=== PATIENT | female | born 1940 | race Caucasian/White ===

== ENCOUNTER 2017-03-26 04:41 | Emergency (ER) | payer OTHER ==
[~2017-03-26] VITALS: Ht 157.5 cm; Wt 67.9 kg
[~2017-03-26 04:41] MED LIST: ASPIRIN E.C.81 M1 PO; CALTRATE 6001 TABLE2 PO; CALTRATE PLUS1 EACH PO; CELEBREX200 MG PO; DYAZIDE PO; DYAZIDE, MA1 CAPSULE PO; Dyazide, Maxzide 37. PO; ESTRACE0.5 MG PO; FOLIC ACID0.8 MG PO; Folic Acid PO; GYNODIOL1 MG PO; LEXAPRO20 MG PO; Levbid,HyoMax SR PO; MYRBETRIQ25 MG PO; Milk Of Magnesia,MOM PO; NEXIUM20 MG PO; PRAVASTATIN SOD20 MG PO; PROTONIX40 MG PO; Pravastatin Sodium PO; Protonix PO; QUESTRAN4 GM/PACKE PO; SANCTURA20 MG PO; Tylenol Regular Stre PO; ULTRAM50 MG PO; VITAMIN D5000 UNI1 PO; VITAMIN E400 UNIT PO; Vitamin-E PO; ZOCOR20 MG PO; [UNRECOGNIZED DRUG - OTHER] PO
[2017-03-26] MEDS ORDERED: TYLENOL WITH C1 EACH PO (06:21)
[2017-03-26 06:36] VITALS: BP 172/68
== END 2017-03-26 06:47 | disposition home or self-care (01) ==
LOC: EME 04:41
PROVIDERS: Emergency Medicine
DX: J06.9 Acute upper respiratory infection, unspecified (principal); K21.9 Gastro-esophageal reflux disease without esophagitis
CPT/HCPCS: 71020; 87502; 87651 90; 99281; 99284; J1100

== ENCOUNTER 2017-08-18 12:14 | Emergency (ER) | payer OTHER ==
[~2017-08-18] VITALS: Ht 160 cm; Wt 66.9 kg
[~2017-08-18 12:14] MED LIST changes: +TYLENOL WITH C1 EACH PO
[2017-08-18] MEDS ORDERED: ATARAX,VISTARIL50 MG PO (13:12)
[2017-08-18] MEDS ORDERED: PREDNISONE10 MG PO (13:12)
[2017-08-18 13:39] VITALS: BP 168/81
== END 2017-08-18 13:41 | disposition home or self-care (01) ==
LOC: EME 12:14
DX: L50.9 Urticaria, unspecified (principal); Z90.710 Acquired absence of both cervix and uterus
CPT/HCPCS: 99281; 99284; J7512